=== PATIENT | female | born 1985 | race Caucasian/White ===

== ENCOUNTER 2019-09-18 09:51 | Emergency (ER) | payer MEDICAID ==
[~2019-09-18] VITALS: Ht 162.6 cm; Wt 52.8 kg
[~2019-09-18 09:51] MED LIST: ACET-2119 PO; CLIN-90 PO; SELE118S3 TP; no home
[2019-09-18 10:02] VITALS: BP 161/98
== END 2019-09-18 11:30 | disposition left against medical advice (07) ==
LOC: ER 09:51
DX: M25.552 Pain in left hip (principal); Z53.21 Procedure and treatment not carried out due to patient leaving prior to being seen by health care provider